=== PATIENT | female | born 1985 | race Caucasian/White ===

== ENCOUNTER 2021-09-17 22:27 | Emergency (ER) | payer OTHER ==
[2021-09-18] MEDS ORDERED: PERCOCET 5-3251 EACH PO (03:43)
[2021-09-18] MEDS ORDERED: CEPHALEXIN500 MG PO (03:43)
[2021-09-18] MEDS ORDERED: MEDROL 4MG DOSEP4 MG PO (03:44)
== END 2021-09-18 03:58 | disposition home or self-care (01) ==
LOC: FER 22:27
DX: L03.113 Cellulitis of right upper limb (principal); Z88.0 Allergy status to penicillin
CPT/HCPCS: 96372; J0696; J1100